=== PATIENT | male | born 1965 | race Caucasian/White ===

== ENCOUNTER 2016-10-05 14:54 | Emergency (ER) | payer MEDICARE, MEDICAID ==
[~2016-10-05] VITALS: Ht 180.3 cm; Wt 75.5 kg
[~2016-10-05 14:54] MED LIST: BUPR1FIL5 PO; BUPR2TAB SL; CARV3.122 PO; FURO-93 PO; HYDR-3241 PO; IBUP800T PO; LISI5TAB7 PO; POTA10CA PO; SPIR25TA3 PO; SULF1TAB3 PO; TORADOL PO
[2016-10-05] MEDS ORDERED: SODIUM CHLORIDE FLUSH 10ML SYR IVF ONE (15:30)
[2016-10-05] MEDS ORDERED: MORPHINE SULFATE 4 MG/ML, 1ML IVPush PRN (15:30)
[2016-10-05] MEDS ORDERED: ONDANSETRON 2MG/ML, 2ML IVPush ONE (15:30)
[2016-10-05 15:50] LABS: ASPARTATE AMINO TRANSFERASE 42 U/L (15-37); BLOOD UREA NITROGEN 16 mg/dL (7-18)
[2016-10-05] MEDS ORDERED: LISI2.5T PO (16:03)
[2016-10-05] MEDS ORDERED: IBUPROFEN 200 MG TABLET ONE (16:21)
[2016-10-05] MEDS ORDERED: IBUPROFEN 200 MG TABLET PO ONE (16:30)
[2016-10-05 16:50] VITALS: BP 149/84
== END 2016-10-05 18:25 | disposition home or self-care (01) ==
LOC: ED 16:03
DX: S16.1XXA Strain of muscle, fascia and tendon at neck level, initial encounter (principal); S00.01XA Abrasion of scalp, initial encounter; S00.81XA Abrasion of other part of head, initial encounter; I11.0 Hypertensive heart disease with heart failure; J44.9 Chronic obstructive pulmonary disease, unspecified; K75.9 Inflammatory liver disease, unspecified; Z87.01 Personal history of pneumonia (recurrent); F17.210 Nicotine dependence, cigarettes, uncomplicated; Y04.8XXA Assault by other bodily force, initial encounter; Y93.89 Activity, other specified; Y92.89 Other specified places as the place of occurrence of the external cause; Y99.8 Other external cause status
CPT/HCPCS: 36415; 70450; 72125; 80053; 83880; 85025; 93005; 99285

== ENCOUNTER 2017-07-24 21:35 | Emergency (ER) | payer MEDICARE, MEDICAID ==
[~2017-07-24] VITALS: Ht 177.8 cm; Wt 63.9 kg
[~2017-07-24 21:35] MED LIST changes: +IBUP-1223 PO; -IBUP800T PO; +LISI2.5T PO; +SULF-169 PO; -SULF1TAB3 PO
[2017-07-24 22:38] LABS: BASOPHILS # (AUTO) 0.08 x10^3/uL (0-0.1); BASOPHILS % (AUTO) 1 % (0-1); EOSINOPHILS # (AUTO) 0.16 x10^3/uL (0-0.4); EOSINOPHILS % (AUTO) 2 % (1-7); LYMPHOCYTES # (AUTO) 2.44 x10^3/uL (1-3.4); LYMPHOCYTES % (AUTO) 33 % (22-44); MD NO; MEAN CORPUSCULAR HEMOGLOBIN 31.4 pg (27.5-34.5); MEAN CORPUSCULAR HGB CONC 33.7 g/dL (33.2-36.2); MEAN CORPUSCULAR VOLUME 93.3 fL (81-97); MEAN PLATELET VOLUME 7.3 fL (7.4-10.4); MONOCYTES # (AUTO) 0.81 x10^3/uL (0.2-0.8); MONOCYTES % (AUTO) 11 % (2-9); NEUTROPHILS # (AUTO) 3.81 x10^3/uL (1.8-6.8); NEUTROPHILS % (AUTO) 52 % (42-75); PLATELET COUNT 332 x10^3/uL (130-400); RED BLOOD COUNT 3.85 x10^6/uL (4.38-5.82); RED CELL DISTRIBUTION WIDTH 13.7 % (9.4-14.8)
[2017-07-24 22:47] LABS: INTERNATIONAL NORMALIZED RATIO 1.06 (0.93-1.1); PROTHROMBIN TIME 10.9 Seconds (9.6-11.5)
[2017-07-24 22:51] LABS: ALBUMIN 3.3 g/dL (3.4-5.0); ANION GAP 10 mmol/L (5-15); CALCIUM 8.3 mg/dL (8.5-10.1); CHLORIDE 109 mmol/L (98-107); CREATININE 1.06 mg/dL (0.7-1.3)
[2017-07-24 22:55] LABS: TROPONIN I 0.031 ng/mL (0.000-0.045)
[2017-07-24 23:15] VITALS: BP 141/91
== END 2017-07-24 23:20 | disposition home or self-care (01) ==
LOC: ED 23:00
DX: R07.89 Other chest pain (principal); R55 Syncope and collapse; J44.9 Chronic obstructive pulmonary disease, unspecified; G43.909 Migraine, unspecified, not intractable, without status migrainosus; F17.200 Nicotine dependence, unspecified, uncomplicated; Z88.1 Allergy status to other antibiotic agents; Z88.8 Allergy status to other drugs, medicaments and biological substances; Z88.6 Allergy status to analgesic agent; F41.9 Anxiety disorder, unspecified
CPT/HCPCS: 36415; 71046; 80048; 82040; 83880; 84484; 85025; 85610; 85730; 93005; 99285

== ENCOUNTER 2018-09-07 06:14 | Emergency (ER) | payer MEDICARE, MEDICAID ==
[~2018-09-07] VITALS: Ht 180.3 cm; Wt 61.0 kg
[~2018-09-07 06:14] MED LIST changes: -SPIR25TA3 PO; +SPIR25TA5 PO
--- NOTE | 2018-09-07 06:35 | NUR ---
assessment made. ERP at bedside.
[2018-09-07] MEDS ORDERED: ASPIRIN 81 MG TABLET CHEW ONE (06:51)
--- NOTE | 2018-09-07 06:56 | NUR ---
X ray done. blood drawn by boot and shoe laborer.
[2018-09-07] MEDS ORDERED: ASPIRIN 81 MG TABLET CHEW PO ONE (07:00)
[2018-09-07 07:04] LABS: BASOPHILS # (AUTO) 0.06 x10^3/uL (0-0.1); BASOPHILS % (AUTO) 1 % (0-1); EOSINOPHILS # (AUTO) 0.21 x10^3/uL (0-0.4); EOSINOPHILS % (AUTO) 2 % (1-7); LYMPHOCYTES # (AUTO) 1.26 x10^3/uL (1-3.4); LYMPHOCYTES % (AUTO) 12 % (22-44); MD NO; MEAN CORPUSCULAR HEMOGLOBIN 30.9 pg (27.5-34.5); MEAN CORPUSCULAR HGB CONC 32.3 g/dL (33.2-36.2); MEAN CORPUSCULAR VOLUME 95.7 fL (81-97); MEAN PLATELET VOLUME 7.6 fL (7.4-10.4); MONOCYTES # (AUTO) 0.64 x10^3/uL (0.2-0.8); MONOCYTES % (AUTO) 6 % (2-9); NEUTROPHILS # (AUTO) 8.79 x10^3/uL (1.8-6.8); NEUTROPHILS % (AUTO) 80 % (42-75); PLATELET COUNT 283 x10^3/uL (130-400); RED BLOOD COUNT 5.08 x10^6/uL (4.38-5.82); RED CELL DISTRIBUTION WIDTH 13.9 % (9.4-14.8)
[2018-09-07 07:08] LABS: ALANINE AMINOTRANSFERASE 33 U/L (12-78); ALBUMIN 3.9 g/dL (3.4-5.0); ANION GAP 7 mmol/L (5-15); CALCIUM 8.9 mg/dL (8.5-10.1); CHLORIDE 105 mmol/L (98-107); CREATININE 1.11 mg/dL (0.7-1.3)
[2018-09-07 07:13] LABS: ALKALINE PHOSPHATASE 120 U/L (45-117); BILIRUBIN,TOTAL 0.4 mg/dL (0.2-1.0); TOTAL PROTEIN 7.8 g/dL (6.4-8.2); TROPONIN I < 0.015 ng/mL (0.000-0.045)
[2018-09-07 07:25] VITALS: BP 135/92
== END 2018-09-07 07:53 | disposition home or self-care (01) ==
LOC: ED 07:42
DX: R07.2 Precordial pain (principal); R06.00 Dyspnea, unspecified; I10 Essential (primary) hypertension; J44.9 Chronic obstructive pulmonary disease, unspecified; F17.200 Nicotine dependence, unspecified, uncomplicated
CPT/HCPCS: 36415; 71045; 80053; 83880; 84484; 85025; 93005; 99284

== ENCOUNTER 2018-09-22 14:26 | Emergency (ER) | payer MEDICARE, MEDICAID ==
[~2018-09-22] VITALS: Ht 180.3 cm; Wt 63.4 kg
[2018-09-22 14:30] VITALS: BP 153/104
[2018-09-22] MEDS ORDERED: IBUPROFEN 200 MG TABLET ONE (15:30)
--- NOTE | 2018-09-22 15:34 | NUR ---
Pt upset, yelling at staff about not giving him free medications. Pt given all refilled prescriptions he was taking and asked for, pt also given residential information from social work that he requested. RN offered to give pt medication assistance program information sheet, pt left room and began leaving, pt encouraged to return to room to finish discharge and gather all his belongings, pt again was offered the medication assistance information. Pt yelled at RN stating he couldnt afford "anything" and left without any discharge papers or prescription. RN attempted to encourage pt to return again to room for prescriptions, but pt still yelling and angry with staff.
[2018-09-22] MEDS ORDERED: IBUPROFEN 200 MG TABLET PO ONE (17:00)
== END 2018-09-22 15:39 | disposition home or self-care (01) ==
LOC: ED 15:33
DX: I11.0 Hypertensive heart disease with heart failure (principal); I50.9 Heart failure, unspecified; J44.9 Chronic obstructive pulmonary disease, unspecified; Z76.0 Encounter for issue of repeat prescription
CPT/HCPCS: 99283

== ENCOUNTER 2018-10-23 22:17 | Emergency (ER) | payer MEDICARE, MEDICAID ==
[~2018-10-23] VITALS: Ht 180.3 cm; Wt 67.0 kg
--- NOTE | 2018-10-23 22:22 | NUR ---
PT BIB [facility] AFTER PT WALKED INTO NEARBY FIRE STATION C/O SWOLLEN TESTICLES SECONDARY TO NON-COMPLIANCE WITH CHF MEDICATIONS. PT STATES HE NORMALLY TAKES LASIX BUT LASIX WAS RECENTLY STOLEN.
[2018-10-23] MEDS ORDERED: FUROSEMIDE 20 MG TABLET PO STA (22:28)
[2018-10-23] MEDS ORDERED: ASPIRIN 81 MG TABLET CHEW PO ONE (22:30)
[2018-10-23] MEDS ORDERED: FUROSEMIDE 20 MG TABLET ONE (22:36)
[2018-10-23] MEDS ORDERED: ASPIRIN 81 MG TABLET CHEW ONE (22:36)
--- NOTE | 2018-10-23 22:42 | NUR ---
PT MEDICATED PER JUN. XRAY AT BS. PT IN [facility] AT THIS TIME;
[2018-10-23 22:57] LABS: BASOPHILS # (AUTO) 0.05 x10^3/uL (0-0.1); BASOPHILS % (AUTO) 1 % (0-1); EOSINOPHILS # (AUTO) 0.15 x10^3/uL (0-0.4); EOSINOPHILS % (AUTO) 2 % (1-7); LYMPHOCYTES # (AUTO) 2.52 x10^3/uL (1-3.4); LYMPHOCYTES % (AUTO) 39 % (22-44); MD NO; MEAN CORPUSCULAR HEMOGLOBIN 30.2 pg (27.5-34.5); MEAN CORPUSCULAR VOLUME 94.5 fL (81-97); MEAN PLATELET VOLUME 8.1 fL (7.4-10.4); MONOCYTES # (AUTO) 0.53 x10^3/uL (0.2-0.8); MONOCYTES % (AUTO) 8 % (2-9); NEUTROPHILS % (AUTO) 50 % (42-75); PLATELET COUNT 230 x10^3/uL (130-400); RED BLOOD COUNT 4.28 x10^6/uL (4.38-5.82); RED CELL DISTRIBUTION WIDTH 14.4 % (9.4-14.8)
[2018-10-23 23:01] LABS: ALBUMIN 3.8 g/dL (3.4-5.0); ANION GAP 6 mmol/L (5-15); CALCIUM 8.6 mg/dL (8.5-10.1); CHLORIDE 109 mmol/L (98-107)
[2018-10-23 23:08] LABS: ALANINE AMINOTRANSFERASE 42 U/L (12-78); ALKALINE PHOSPHATASE 104 U/L (45-117); BILIRUBIN,TOTAL 0.9 mg/dL (0.2-1.0); CREATININE 1.35 mg/dL (0.7-1.3); TOTAL PROTEIN 7.4 g/dL (6.4-8.2); TROPONIN I 0.019 ng/mL (0.000-0.045)
[2018-10-23 23:36] VITALS: BP 130/88
--- NOTE | 2018-10-24 00:12 | NUR ---
PT D/C WITH D/C SUMMARY AND SCRIPTS. PT PROVIDED A TAXI VOUCHER FOR SAFE D/C HOME. PT AMBULATES WITH STEADY GAIT TO REGISTRATION DESK FOR D/C HOME. PT DENIES ANY OTHER NEEDS PERTAINING TO THIS VISIT.
== END 2018-10-24 00:14 | disposition home or self-care (01) ==
LOC: ED 22:37
DX: F15.20 Other stimulant dependence, uncomplicated (principal); N50.812 Left testicular pain; N50.811 Right testicular pain; R07.9 Chest pain, unspecified; J44.9 Chronic obstructive pulmonary disease, unspecified; F41.1 Generalized anxiety disorder; G43.909 Migraine, unspecified, not intractable, without status migrainosus; I10 Essential (primary) hypertension
CPT/HCPCS: 36415; 71045; 80053; 83880; 84484; 85025; 93005; 99284

== ENCOUNTER 2018-11-25 20:04 | Emergency (ER) | payer MEDICARE, MEDICAID ==
[~2018-11-25] VITALS: Ht 175.3 cm; Wt 61.9 kg
[2018-11-25 21:35] VITALS: BP 126/87
== END 2018-11-25 21:59 | disposition home or self-care (01) ==
LOC: ED 21:29
DX: I11.0 Hypertensive heart disease with heart failure (principal); I50.9 Heart failure, unspecified; J45.909 Unspecified asthma, uncomplicated; G43.909 Migraine, unspecified, not intractable, without status migrainosus; F41.1 Generalized anxiety disorder; Z72.9 Problem related to lifestyle, unspecified; J44.9 Chronic obstructive pulmonary disease, unspecified
CPT/HCPCS: 36415; 71045; 80053; 83880; 84484; 85025; 93005; 99284

== ENCOUNTER 2020-08-28 16:27 | Emergency (ER) | payer MEDICAID, MEDICARE ==
[~2020-08-28] VITALS: Ht 180.3 cm; Wt 64.6 kg
[~2020-08-28 16:27] MED LIST changes: +FURO40TA6 PO
--- NOTE | 2020-08-28 17:37 | NUR ---
TASK RN: PT HERE FOR C/O RIGHT HAND PAIN ON 4TH FINGER. SWELLING AND REDNESS NOTED. ERP AT BEDSIDE FOR EVAL.
[2020-08-28 17:38] VITALS: BP 124/90
[2020-08-28] MEDS ORDERED: LIDOCAINE-MPF 1%, 5ML ONE (17:41)
[2020-08-28] MEDS ORDERED: CARV3.122 PO (17:42)
[2020-08-28] MEDS ORDERED: LISI10TA19 PO (17:42)
[2020-08-28] MEDS ORDERED: IBUPROFEN 200 MG TABLET ONE (18:15)
[2020-08-28] MEDS ORDERED: IBUPROFEN 200 MG TABLET PO ONE (18:30)
== END 2020-08-28 18:42 | disposition home or self-care (01) ==
LOC: ED 18:33
DX: L02.511 Cutaneous abscess of right hand (principal); I11.0 Hypertensive heart disease with heart failure; J44.9 Chronic obstructive pulmonary disease, unspecified
CPT/HCPCS: 10060; 99283

== ENCOUNTER 2020-09-22 17:53 | Emergency (ER) | payer SELFPAY ==
[~2020-09-22] VITALS: Ht 180.3 cm; Wt 70.0 kg
[~2020-09-22 17:53] MED LIST changes: +LISI10TA19 PO
[2020-09-22 20:12] VITALS: BP 149/101
--- NOTE | 2020-09-22 20:18 | NUR ---
JOIE AT BEDSIDE FOR EVAL AND POC
--- NOTE | 2020-09-22 20:20 | NUR ---
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 PT AMBULATORY SPEAKING IN FULL SENTENCES PT CONNECTED TO ALL MONITORING VSS
[2020-09-22] MEDS ORDERED: LORazepam 2 MG/ML, 1ML IVPush ONE (20:30)
[2020-09-22 20:57] LABS: BASOPHILS % (AUTO) 0 % (0-1); EOSINOPHILS % (AUTO) 0 % (1-7); LYMPHOCYTES % (AUTO) 4 % (22-44); MEAN CORPUSCULAR HEMOGLOBIN 31.2 pg (27.5-34.5); MEAN CORPUSCULAR HGB CONC 33.8 g/dL (33.2-36.2); MEAN PLATELET VOLUME 7.9 fL (7.4-10.4); MONOCYTES % (AUTO) 3 % (2-9); NEUTROPHILS % (AUTO) 92 % (42-75); PLATELET COUNT 228 x10^3/uL (130-400); RED BLOOD COUNT 4.56 x10^6/uL (4.38-5.82); RED CELL DISTRIBUTION WIDTH 14.9 % (9.4-14.8)
[2020-09-22] MEDS ORDERED: LORazepam 2 MG/ML, 1ML ONE (20:59)
--- NOTE | 2020-09-22 21:08 | NUR ---
PT MEDICATED PER MAR VSS 5 RIGHTS VERIFIED
[2020-09-22 21:10] LABS: ALANINE AMINOTRANSFERASE 37 U/L (12-78); ALBUMIN 3.6 g/dL (3.4-5.0); ANION GAP 7 mmol/L (5-15); CALCIUM 8.8 mg/dL (8.5-10.1); CHLORIDE 110 mmol/L (98-107)
[2020-09-22 21:14] LABS: ALKALINE PHOSPHATASE 139 U/L (45-117); BILIRUBIN,TOTAL 0.8 mg/dL (0.2-1.0); TOTAL PROTEIN 7.8 g/dL (6.4-8.2); TROPONIN I 0.021 ng/mL (0.000-0.045)
--- NOTE | 2020-09-22 21:31 | NUR ---
pt aware of need for urine sample pt declines to provide one
--- NOTE | 2020-09-22 22:30 | NUR ---
Patient/Caregiver given discharge instructions and they have confirmed that they understand the instructions. Patient ambulatory with steady gait. NAD, all questions answered appropriately, denies additional needs at this time. No personal belongings left in room after discharge.
== END 2020-09-22 22:31 | disposition home or self-care (01) ==
LOC: ED 21:07
DX: R07.89 Other chest pain (principal); R06.00 Dyspnea, unspecified; I11.0 Hypertensive heart disease with heart failure; I50.9 Heart failure, unspecified; Z76.0 Encounter for issue of repeat prescription; F17.210 Nicotine dependence, cigarettes, uncomplicated; R00.0 Tachycardia, unspecified; J44.9 Chronic obstructive pulmonary disease, unspecified; G43.909 Migraine, unspecified, not intractable, without status migrainosus
CPT/HCPCS: 36415; 71045; 80053; 83880; 84484; 85025; 85379; 93005; 96374; 99285; 99406; J2060

== ENCOUNTER 2020-11-16 12:20 | Emergency (ER) | payer SELFPAY ==
[~2020-11-16] VITALS: Ht 177.8 cm; Wt 64.8 kg
[2020-11-16 12:25] VITALS: BP 129/87
== END 2020-11-16 13:00 | disposition home or self-care (01) ==
LOC: ED 12:26
DX: I11.0 Hypertensive heart disease with heart failure (principal); I50.9 Heart failure, unspecified; Z76.0 Encounter for issue of repeat prescription; J44.9 Chronic obstructive pulmonary disease, unspecified; G43.909 Migraine, unspecified, not intractable, without status migrainosus; Z87.891 Personal history of nicotine dependence
CPT/HCPCS: 99281